=== PATIENT | female | born 1990 | race Hispanic/Latino ===

== ENCOUNTER 2017-01-23 01:43 | Emergency (ER) | payer OTHER ==
[~2017-01-23] VITALS: Ht 165.1 cm; Wt 132.0 kg
[~2017-01-23 01:43] MED LIST: AMBIEN10 MG OR; AMOXICILLIN500 MG PO; AUGMENTIN875TAB PO; CEPHALEXIN500 MG PO; CIPROFLOXACN500 MG PO; CLARITIN10 MG PO; KEFLEX500 MG PO; KLONOPIN1 MG OR; LAMICTAL150 M1; MOTRIN800 MG PO; NAPROSYN500 MG OR; NAPROSYN500 MG PO; NO HOME MEDS; OBTREX DHA PO; PRE-NATAL PO; PRENATAL1 TA1; PYRIDIUM200 MG PO; SPRINTEC 2828 DAY PO; TRILEPTAL300 M1 OR; ULTRAM50 M1 PO; ZOFRAN ODT4 MG PO; [UNRECOGNIZED DRUG - OTHER] TOP
[2017-01-23 01:48] VITALS: BP 115/65
[2017-01-23 02:57] LABS: INFLUENZA A NONE DETECTED (NONE DETECT); INFLUENZA B NONE DETECTED (NONE DETECT)
[2017-01-23] MEDS ORDERED: CODEINE/GUAIFEN1 SOL PO (03:23)
[2017-01-23] MEDS ORDERED: AMOXICILLIN500 MG PO (03:23)
== END 2017-01-23 03:39 | disposition home or self-care (01) | DRG 203 ==
LOC: ED 01:43
PROVIDERS: Emergency Medicine
DX: J40 Bronchitis, not specified as acute or chronic (principal); H92.02 Otalgia, left ear; R05 Cough; R09.89 Other specified symptoms and signs involving the circulatory and respiratory systems; R07.89 Other chest pain; R50.9 Fever, unspecified

== ENCOUNTER 2018-07-09 08:24 | Emergency (ER) | payer OTHER ==
[~2018-07-09] VITALS: Ht 165.1 cm; Wt 146.4 kg
[~2018-07-09 08:24] MED LIST changes: +CODEINE/GUAIFEN1 SOL PO
[2018-07-09] MEDS ORDERED: WELLBUTRIN SR150 MG PO (08:56)
[2018-07-09] MEDS ORDERED: FLOVENT HF110 MCG/AC (08:56)
[2018-07-09 09:32] LABS: INFLUENZA A NONE DETECTED (NONE DETECT); INFLUENZA B NONE DETECTED (NONE DETECT)
[2018-07-09] MEDS ORDERED: MEDDOSEPAK PO (10:17)
[2018-07-09] MEDS ORDERED: TESSALON PER100 MG PO (10:17)
[2018-07-09] MEDS ORDERED: ZITHROMAX250 MG PO (10:17)
[2018-07-09 10:30] VITALS: BP 129/80
== END 2018-07-09 10:30 | disposition home or self-care (01) ==
LOC: ED 08:24
PROVIDERS: Emergency Medicine
DX: J45.909 Unspecified asthma, uncomplicated (principal); E66.9 Obesity, unspecified; R05 Cough; R09.81 Nasal congestion

== ENCOUNTER 2018-09-28 12:08 | Emergency (ER) | payer OTHER ==
[~2018-09-28] VITALS: Ht 165.1 cm; Wt 125.0 kg
[~2018-09-28 12:08] MED LIST changes: +FLOVENT HF110 MCG/AC PO; +MEDDOSEPAK PO; +TESSALON PER100 MG PO; +WELLBUTRIN SR150 MG PO; +ZITHROMAX250 MG PO
[2018-09-28] MEDS ORDERED: METFORMIN500 M2 PO (12:34)
[2018-09-28] MEDS ORDERED: TOPAMAX50 MG PO (12:35)
[2018-09-28] MEDS ORDERED: PROVENTIL108 MCG/AC IN (13:31)
[2018-09-28] MEDS ORDERED: ZITHROMAX250 MG PO (13:31)
[2018-09-28] MEDS ORDERED: TESSALON PERLE100 MG PO (13:31)
[2018-09-28] MEDS ORDERED: CORTISPORIN OTI10 M2 AS (13:31)
[2018-09-28 13:35] VITALS: BP 129/73
== END 2018-09-28 13:35 | disposition home or self-care (01) ==
LOC: ED 12:08
DX: H66.92 Otitis media, unspecified, left ear (principal); J06.9 Acute upper respiratory infection, unspecified; J45.909 Unspecified asthma, uncomplicated; E66.9 Obesity, unspecified

== ENCOUNTER 2019-04-16 16:35 | Emergency (ER) | payer OTHER ==
[~2019-04-16] VITALS: Ht 165.1 cm; Wt 154.1 kg
[~2019-04-16 16:35] MED LIST changes: +CORTISPORIN OTI10 M2 AS; +METFORMIN500 M2 PO; +PROVENTIL108 MCG/AC IN; +TESSALON PERLE100 MG PO; +TOPAMAX50 MG PO
[2019-04-16 18:32] VITALS: BP 134/75
== END 2019-04-16 18:37 | disposition home or self-care (01) ==
LOC: ED 16:35
DX: O46.91 Antepartum hemorrhage, unspecified, first trimester (principal)

== ENCOUNTER 2019-05-31 10:19 | Emergency (ER) | payer OTHER ==
[~2019-05-31] VITALS: Ht 165.1 cm; Wt 140.0 kg
[2019-05-31] MEDS ORDERED: KEFLEX500 M1 PO (11:59)
[2019-05-31 12:10] VITALS: BP 155/87
[2019-06-01] MEDS ORDERED: VENTOLIN HFA IN (22:00)
== END 2019-05-31 12:10 | disposition home or self-care (01) ==
LOC: ED 10:19
DX: J02.0 Streptococcal pharyngitis (principal); J45.909 Unspecified asthma, uncomplicated

== ENCOUNTER 2019-06-01 20:16 | Emergency (ER) | payer OTHER ==
[~2019-06-01] VITALS: Ht 165.1 cm; Wt 160.0 kg
[~2019-06-01 20:16] MED LIST changes: +KEFLEX500 M1 PO
--- NOTE | 2019-06-01 21:06 | NUR ---
BREATHING TREATMENT GIVEN. BREATHING TECH. FOR GOOD DEPOSITION TO THE LUNGS.
[2019-06-01 21:14] LABS: HEMOGLOBIN 11.6 g/dl (12.0-16.0); IMMATURE GRANULOCYTES 0.6 % (0.0-5.0); MEAN CORPUSCULAR HGB 23.8 pG CALC (26.0-32.0); MEAN CORPUSCULAR HGB CONC 30.5 g/L CALC (32.0-36.0); NEUT# 10.55 thou/uL (2.00-7.15); RED BLOOD COUNT 4.87 mill/uL (4.20-5.60); RED CELL DISTRI WIDTH 14.4 % (11.5-15.5)
[2019-06-01 21:30] LABS: ALBUMIN 4.3 g/dL (3.2-5.0); ALKALINE PHOSPHATASE 105 u/l (38-126); ANION GAP 16 (6-22 (CALC)); BILIRUBIN, TOTAL 0.5 mg/dL (0.0-1.4); BUN 15 mg/dL (7-17); BUN/CREATININE RATIO 21 (12-20 (CALC)); CARBON DIOXIDE 24 mmol/l (22-30); CHLORIDE 104 mmol/l (95-108); CREATININE 0.7 mg/dL (0.5-1.0); GFR > 60 ML/MIN (>=60 (CALC)); GFR FOR AFR.AMER. > 60 ML/MIN (>=60 (CALC)); SGOT/AST 22 u/l (14-36); SODIUM 141 mmol/l (137-146); TOTAL PROTEIN 8.2 g/dL (6.3-8.2)
[2019-06-01 21:31] LABS: POTASSIUM 3.4 mmol/l (3.5-5.1)
[2019-06-01] MEDS ORDERED: VENTOLIN HFA IN (22:00)
[2019-06-01 22:28] VITALS: BP 126/75
== END 2019-06-01 22:28 | disposition home or self-care (01) ==
LOC: ED 20:16
PROVIDERS: Family Medicine
DX: J20.9 Acute bronchitis, unspecified (principal); R04.2 Hemoptysis

== ENCOUNTER 2019-08-06 08:50 | Emergency (ER) | payer OTHER ==
[~2019-08-06] VITALS: Ht 160 cm; Wt 122.7 kg
[~2019-08-06 08:50] MED LIST changes: +VENTOLIN HFA IN
[2019-08-06 09:28] LABS: HEMATOCRIT 39.1 % (37.0-47.0); HEMOGLOBIN 11.6 g/dl (12.0-16.0); IMMATURE GRANULOCYTES 0.4 % (0.0-5.0); MEAN CELL VOLUME 79.8 fL CALC (80.0-100.0); MEAN CORPUSCULAR HGB 23.7 pG CALC (26.0-32.0); MEAN CORPUSCULAR HGB CONC 29.7 g/L CALC (32.0-36.0); NEUT# 10.03 thou/uL (2.00-7.15); RED BLOOD COUNT 4.9 mill/uL (4.20-5.60); RED CELL DISTRI WIDTH 14.6 % (11.5-15.5)
[2019-08-06 09:29] LABS: URINE BILIRUBIN - DIPSTICK NEGATIVE (NEGATIVE); URINE BLOOD DIPSTICK NEGATIVE (NEGATIVE); URINE COLOR YELLOW; URINE GLUCOSE - DIPSTICK NEGATIVE (NEGATIVE); URINE KETONE NEGATIVE (NEGATIVE); URINE LEUK ESTERASE NEGATIVE (NEGATIVE); URINE NITRITE - DIPSTICK NEGATIVE (Negative); URINE PROTEIN - DIPSTICK NEGATIVE (NEG-TRACE); URINE UROBILINOGEN - DIPSTICK 0.2 E.U./dL (0.2)
[2019-08-06] MEDS ORDERED: VITAMIN D ×2 (09:36→09:38)
[2019-08-06] MEDS ORDERED: FERRAPLUS 90 PO (09:37)
[2019-08-06 09:57] LABS: ALBUMIN 3.8 g/dL (3.2-5.0); ALKALINE PHOSPHATASE 97 u/l (38-126); ANION GAP 14 (6-22 (CALC)); BILIRUBIN, TOTAL 0.7 mg/dL (0.0-1.4); BUN 13 mg/dL (7-17); BUN/CREATININE RATIO 22 (12-20 (CALC)); CARBON DIOXIDE 27 mmol/l (22-30); CHLORIDE 102 mmol/l (95-108); CREATININE 0.6 mg/dL (0.5-1.0); GFR > 60 ML/MIN (>=60 (CALC)); GFR FOR AFR.AMER. > 60 ML/MIN (>=60 (CALC)); POTASSIUM 4.6 mmol/l (3.5-5.1); SGOT/AST 21 u/l (14-36); SODIUM 139 mmol/l (137-146); TOTAL PROTEIN 7.6 g/dL (6.3-8.2)
[2019-08-06] MEDS ORDERED: FLONASE AL50 MCG/ACT (10:30)
[2019-08-06] MEDS ORDERED: CLARITIN10 M1 PO (10:30)
[2019-08-06] MEDS ORDERED: CEPHALEXIN500 MG PO (10:30)
[2019-08-06 10:45] VITALS: BP 108/57
== END 2019-08-06 10:45 | disposition home or self-care (01) ==
LOC: ED 08:50
PROVIDERS: Emergency Medicine
DX: J32.9 Chronic sinusitis, unspecified (principal)

== ENCOUNTER 2019-11-30 | Emergency (ER) | payer MEDICAID ==
[~2019-11-30] MED LIST changes: +CLARITIN10 M1 PO; +FERRAPLUS 90 PO; +FLONASE AL50 MCG/ACT; +VITAMIN D
[2019-11-30 15:33] LABS: ALBUMIN 4.3 g/dL (3.2-5.0); ALKALINE PHOSPHATASE 116 u/l (38-126); ANION GAP 14 (6-22 (CALC)); BILIRUBIN, TOTAL 1.1 mg/dL (0.0-1.4); BUN 10 mg/dL (7-17); BUN/CREATININE RATIO 19 (12-20 (CALC)); CARBON DIOXIDE 25 mmol/l (22-30); CHLORIDE 102 mmol/l (95-108); CREATININE 0.5 mg/dL (0.5-1.0); GFR > 60 ML/MIN (>=60 (CALC)); GFR FOR AFR.AMER. > 60 ML/MIN (>=60 (CALC)); POTASSIUM 4.4 mmol/l (3.5-5.1); SGOT/AST 23 u/l (14-36); SODIUM 138 mmol/l (137-146); TOTAL PROTEIN 8.4 g/dL (6.3-8.2)
[2019-11-30 15:41] LABS: HEMATOCRIT 38.2 % (37.0-47.0); HEMOGLOBIN 11.6 g/dl (12.0-16.0); IMMATURE GRANULOCYTES 0.5 % (0.0-5.0); MEAN CORPUSCULAR HGB 23.7 pG CALC (26.0-32.0); MEAN CORPUSCULAR HGB CONC 30.4 g/dL CAL (32.0-36.0); NEUT# 18.88 thou/uL (2.00-7.15); RED BLOOD COUNT 4.9 mill/uL (4.20-5.60); RED CELL DISTRI WIDTH 14.6 % (11.5-15.5)
[2019-11-30 16:23] LABS: C-REACTIVE PROTEIN 3.5 mg/dL (0-0.9)
[2019-11-30 16:41] LABS: URINE BILIRUBIN - DIPSTICK NEGATIVE (NEGATIVE); URINE BLOOD DIPSTICK NEGATIVE (NEGATIVE); URINE COLOR YELLOW; URINE GLUCOSE - DIPSTICK NEGATIVE (NEGATIVE); URINE KETONE NEGATIVE (NEGATIVE); URINE LEUK ESTERASE NEGATIVE (NEGATIVE); URINE NITRITE - DIPSTICK NEGATIVE (Negative); URINE PROTEIN - DIPSTICK NEGATIVE (NEG-TRACE); URINE UROBILINOGEN - DIPSTICK 0.2 E.U./dL (0.2)
[2019-11-30] MEDS ORDERED: ZPAK PO (16:55)
== END 2019-11-30 16:58 | disposition home or self-care (01) ==
PROVIDERS: Family Medicine
DX: J06.9 Acute upper respiratory infection, unspecified (principal); Z20.828 Contact with and (suspected) exposure to other viral communicable diseases

== ENCOUNTER 2019-12-05 20:23 | Inpatient (IN) | payer MEDICAID ==
[~2019-12-05] VITALS: Ht 162.6 cm; Wt 151.0 kg
[~2019-12-05 20:23] MED LIST changes: +ZPAK PO
--- NOTE | 2019-12-05 20:40 | NUR ---
Pt ambulated to room # 3 with steady gait for bedside triage
--- NOTE | 2019-12-05 20:41 | NUR ---
PT. TO ROOM 15 WITH C/O TAKING A Z-PACK FOR SORE THROAT AND STATING SHE IS FEELING WORSE. PT. TEMP. 101.4. BEING SEEN HERE ON SUNDAY AND HAVING A NEGATIVE FLU AND STREP.
[2019-12-05] MEDS ORDERED: FLOVENT DI250 MCG/BL (20:57)
[2019-12-05] MEDS ORDERED: ALBUTEROL SUL0.083 % IN (20:57)
[2019-12-05 21:48] LABS: HEMATOCRIT 41.2 % (37.0-47.0); HEMOGLOBIN 12.7 g/dl (12.0-16.0); IMMATURE GRANULOCYTES 0.5 % (0.0-5.0); MEAN CELL VOLUME 77.2 fL CALC (80.0-100.0); MEAN CORPUSCULAR HGB 23.8 pG CALC (26.0-32.0); MEAN CORPUSCULAR HGB CONC 30.8 g/dL CAL (32.0-36.0); NEUT# 14.01 thou/uL (2.00-7.15); RED BLOOD COUNT 5.34 mill/uL (4.20-5.60); RED CELL DISTRI WIDTH 14.2 % (11.5-15.5)
[2019-12-05 22:06] LABS: ALBUMIN 4.5 g/dL (3.2-5.0); ALKALINE PHOSPHATASE 133 u/l (38-126); ANION GAP 14 (6-22 (CALC)); BILIRUBIN, TOTAL 0.8 mg/dL (0.0-1.4); BUN 10 mg/dL (7-17); BUN/CREATININE RATIO 17 (12-20 (CALC)); C-REACTIVE PROTEIN 5.9 mg/dL (0-0.9); CARBON DIOXIDE 26 mmol/l (22-30); CHLORIDE 99 mmol/l (95-108); CREATININE 0.6 mg/dL (0.5-1.0); GFR > 60 ML/MIN (>=60 (CALC)); GFR FOR AFR.AMER. > 60 ML/MIN (>=60 (CALC)); POTASSIUM 4.4 mmol/l (3.5-5.1); SGOT/AST 32 u/l (14-36); SODIUM 135 mmol/l (137-146); TOTAL PROTEIN 9.3 g/dL (6.3-8.2)
--- NOTE | 2019-12-05 22:07 | NUR ---
IVF, IV SOLU-MEDROL IV ABT. AND PO TYLENOL GIVEN PER MD ORDER.
--- NOTE | 2019-12-05 23:56 | NUR ---
IN ROOM TO DISCUSS CLINICAL FINDINGS WITH PT. VERBALIZED UNDERSTANDING.
[2019-12-06] VITALS (7 sets, daily range): BP systolic 119–161; BP diastolic 64–78
--- NOTE | 2019-12-06 01:00 | NUR ---
MD MADE PT. AWARE OF ADMISSION, VERBALIZED UNDERSTANDING.
--- NOTE | 2019-12-06 01:20 | NUR ---
Admission Note Report Given to: NGOZI WILLS Transported by: Wheelchair X Stretcher Transported with: X Nurse Transporter X Patent IV O2 X Pilot Steam Yacht Location: ICU X MS2
--- NOTE | 2019-12-06 01:31 | NUR ---
PT. TAKEN TO [place] FLOOR VIA STRETCHER, NO C/O.
--- NOTE | 2019-12-06 01:45 | NUR ---
PT ARRIVED TO UNIT @ 0142 VIA STRETCHER, ACCOMPANIED BY Sourav LEMA RN. PT AMBULATORY TO THE ROOM W/ BALANCED, STEADY GATE. ADMISSION AND PHYSICAL ASSESMENT COMPLETED. CARE PLAN INITIATED. PLAN OF CARE REVIEWED W/ PT. PT VERBALIZES UNDERSTANDING AND DENIES QUESTIONS, PT DENIES NEEDS AT THIS TIME. CALL RAUSCH WITHIN REACH. AGREES TO CALL PRN. ITEMS WITHIN REACH. BED LOCKED IN LOW POSITION W/ BEDRAILS UP X2.
--- NOTE | 2019-12-06 03:15 | NUR ---
PT NPO FOR ABD U/S TODAY
--- NOTE | 2019-12-06 04:32 | NUR ---
PT APPEARS TO BE SLEEPING COMFORTABLY. NO APPARENT DISTRESS. RESPIRATIONS REGULAR AND UNLABORED. CALL RAUSCH REMAINS WITHIN REACH, FALL AND SAFETY INTERVENTIONS REMAIN IN PLACE.
--- NOTE | 2019-12-06 08:00 | NUR ---
REPORT RECEIVED FROM JOHANN MELVIN. PT SITTING UP IN BED EATING CLEAR LIQUID BREAKFAST; ALERT AND ORIENTED. C/O 4/10 PAIN IN HER THROAT THAT IS MAKING IT DIFFICULT FOR HER TO SWALLOW. RESPIRATIONS EVEN AND UNLABORED ON ROOM AIR. IV FLUIDS INFUSING; IV SITE APPEARS HEALTHY. PLAN OF CARE REVIEWED. PT ENCOURAGED TO VERBALIZE CONCERNS. STATES UNDERSTANDING. SAFETY MEASURES IN PLACE. CALL LIGHT WITHIN REACH.
--- NOTE | 2019-12-06 08:25 | NUR ---
MOTRIN GIVEN FOR 4/10 SORE THROAT.
--- NOTE | 2019-12-06 09:14 | NUR ---
VANCO INFUSING. PT REQUESTED TO NOT BE DISTURBED UNTIL LUNCH SO SHE CAN GET SOME SLEEP. REPORTS THAT MOTRIN WAS EFFECTIVE.
--- NOTE | 2019-12-06 12:32 | NUR ---
PT SITTING UP FOR LUNCH WITH NO SIGNS OF DISTRESS. RESPIRATIONS EVEN AND UNLABORED ON ROOM AIR. NO REQUESTS OR CONCERNS AT THIS TIME. CALL LIGHT WITHIN REACH.
--- NOTE | 2019-12-06 14:59 | NUR ---
S: BECKY TRIPLETT is a 29 F who presents with TONSILLITIS. She has a history of CONGESTION AND SORE THROAT FOR 2 WEEKS. All medications in patient's chart were reviewed. O: VS: BP 124/77, P 69, RR 18,T 96.3 W 151kg>, HT 64IN, Scr=,CrCl= 0.6 ml/min A: Blood culture <is pending Urine culture <is pending P: Patient is on ZOSYN 3.375 Q6H AND VANCOMYCIN PHARMACY TO DOSE. Vancomycin ordered for pharmacy to dose. Start Vancomycin 1250MG IV Q8H. Vancomycin trough is drawn before the 4th dose on 12/07/19 @0830. Vancomycin goal trough is between <10-15 mcg/ml>. Pharmacy will follow and or advise on antibiotics use as needed.
--- NOTE | 2019-12-06 16:45 | NUR ---
INDEPENDENT IN ROOM; AMBULATING TO BATHROOM. VANCO INFUSING; IV SITE APPEARS HEALTHY. NO REQUESTS OR CONCERNS AT THIS TIME. CALL LIGHT WITHIN REACH.
--- NOTE | 2019-12-06 19:00 | NUR ---
REPORT RECEIVED FROM Oli PLUMMER RN, CARE OF PT ASSUMED @ THIS TIME. PT RESTING IN BED, NO APPARENT DISTRESS OR DISCOMFORT. DENIES NEEDS @ THIS TIME. CALL RAUSCH WITHIN REACH, AGREES TO CALL PRN.
--- NOTE | 2019-12-06 20:45 | NUR ---
PHYSICAL ASSESMENT COMPLETED. VS TAKEN BY EPIFANIO @ 1909 ASSESSED. PLAN OF CARE REVIEWED, PT VERBALIZES UNDERSTANDING, DENIES QUESTIONS @ THIS TIME. SEE MAR FOR MED ADMINASTRATION. PT DENIES NEEDS @ THIS TIME, CALL RAUSCH WITHIN REACH, AGREES TO CALL PRN. BED LOCKED IN LOW POSITION W/ BEDRAILS UP X2. ITEMS WITHIN REACH.
--- NOTE | 2019-12-06 23:00 | NUR ---
PER Alannah RODRIGUEZ PT IS SUSTAINING 130'S-140'S ST ON TELE. PT ASSESSED. NO APARENT DISTRESS, RESP REG AND UNLABORED. PT WAS FOUND LAYING IN BED USING CELL PHONE W/ HEADPHONES IN. DENIES PAIN/ DISCOMFORT. REPORTS "FEELING WARM" TEMP 97.5 TEMPORALY. RADIAL PULSE IS 85bpm UPON PALPATION, STRONG, REGULAR PULSE. F/U W/ Alannah RODRIGUEZ WHEN RETURNED TO NURSES STATION, REPORTS PT IS NOW SR 87. WILL CON'T TO [id number].
--- NOTE | 2019-12-07 01:24 | NUR ---
VS TAKEN BY TIP BANDER @ 0958 ASSESSED. PT APPEARS TO BE SLEEPING COMFORTABLY, NO APPARENT DISTRESS, RESP REGUALR AND UNLABORED. CALL RAUSCH REMAINS WITHIN REACH, BED REMAINS LOCKED IN LOW POSITION W/ BEDRAILS UP X2.ITEMS REMAIN WITHIN REACH.
[2019-12-07 04:45] VITALS: BP 135/76
[2019-12-07 05:06] LABS: HEMATOCRIT 37.2 % (37.0-47.0); HEMOGLOBIN 11.2 g/dl (12.0-16.0); IMMATURE GRANULOCYTES 0.6 % (0.0-5.0); MEAN CELL VOLUME 79.3 fL CALC (80.0-100.0); MEAN CORPUSCULAR HGB 23.9 pG CALC (26.0-32.0); MEAN CORPUSCULAR HGB CONC 30.1 g/dL CAL (32.0-36.0); NEUT# 11.31 thou/uL (2.00-7.15); RED BLOOD COUNT 4.69 mill/uL (4.20-5.60); RED CELL DISTRI WIDTH 14.5 % (11.5-15.5)
[2019-12-07 05:12] LABS: ALKALINE PHOSPHATASE 88 u/l (38-126); ANION GAP 9 (6-22 (CALC)); BUN 11 mg/dL (7-17); BUN/CREATININE RATIO 23 (12-20 (CALC)); CARBON DIOXIDE 28 mmol/l (22-30); CHLORIDE 106 mmol/l (95-108); CREATININE 0.5 mg/dL (0.5-1.0); GFR > 60 ML/MIN (>=60 (CALC)); GFR FOR AFR.AMER. > 60 ML/MIN (>=60 (CALC)); POTASSIUM 4.2 mmol/l (3.5-5.1); SGOT/AST 20 u/l (14-36); SODIUM 139 mmol/l (137-146)
[2019-12-07 05:19] LABS: ALBUMIN 3.5 g/dL (3.2-5.0); BILIRUBIN, TOTAL 0.4 mg/dL (0.0-1.4); TOTAL PROTEIN 7.1 g/dL (6.3-8.2)
--- NOTE | 2019-12-07 05:41 | NUR ---
PT REPORTS NO RELEIF FROM PAIN. PT EXPRESSES FRUSTRATIONS W/ CARE. STATES "YOU KEEP ASKING ME IF IM OK BUT IM NOT GETTING BETTER", PT IS TEARY AND VISIBLY UPSET. ENCOURAGED PT TO REPORT PAIN ACCURATELY. PT REPORTS SHE FEELS SHE NEEDS AN ENT SPECIALIST AND WOULD LIKE TO BE TRANSFERRED TO A DIFFERENT, LARGER HOSPITAL. EXPLAINED TO PT SHE HAS BEEN AFEBRILE AND WBC DECREASED SO SHE IS SHOWING IMPROVEMENT. ENCOURAGED PT TO DISCUSS HER CONCERNS WITH HER PROVIDER THIS AM. ASKED PT IF SHE WOULD WAIT UNTIL SHE WAS ABLE TO SPEAK W/ HER PROVIDER TODAY. PT AGREES. SPOKE W/ DR. BETANCOURT REGARDING PTS CONCERNS AND UNRELEIVED PAIN. ORDER FOR TORADOL 15MG IVX1 RECEIVED, SEE NOV.
[2019-12-07 09:04] VITALS: BP 140/82
--- NOTE | 2019-12-07 09:04 | NUR ---
PT SLEEPING IN BED. AWAKENED TO COMPLETE ASSESSMENT. A&O X3. NO DISTRESS NOTED. PER PT SHE IS FEELING OKAY AND HER THROAT IS NOT CURRENTLY BOTHERING HER. NO OTHER NEEDS AT THIS TIME. ASSESSMENT COMPLETED. DISCUSSED POC. CALL LIGHT IN REACH. CONTINUE TO MONITOR.
--- NOTE | 2019-12-07 10:20 | NUR ---
S: BECKY TRIPLETT is a 29 F who presents with TONSILLITIS. She has a history of SORE THROAT . All medications in patient's chart were reviewed. Blood culture <is pending Urine culture <is pending P: Patient is on ZOSYN 3.375 Q6H. Vancomycin ordered for pharmacy to dose. PATIENTS TROUGH IS 10 ON 12/06/18. PATIENT IS OBESE WE WILL RECHECK TROUGH I N 24 HOURS BEFORE CHANGING DOSE. CONTINUE Vancomycin 1250MG IV Q8H. Vancomycin trough is drawn before the 4th dose on 12/08/19 0830. Vancomycin goal trough is between 15-20 mcg/ml. Pharmacy will follow and or advise on antibiotics use as needed.
[2019-12-07 10:47] VITALS: BP 138/77
--- NOTE | 2019-12-07 13:04 | NUR ---
PT C/O OF A SORE THROAT. TEMP CHECKED 100.2 EXPLAINED TO PT THAT BLANKETS WILL BE REMOVED AND ROOM MADE COLDER. EXPLAINED REASONING BEHIND INTERVENTIONS. PT VERBALIZED UNDERSTANDING.
--- NOTE | 2019-12-07 13:16 | NUR ---
PER CAMDEN IN ED, HR 160 AND CLINICAL SUPPORT CALLED ON PT. CHECKED ON PT PT AMBULATING FROM THE RESTROOM BACK TO BED. PER PT SHE IS OKAY BUT FEELS SOME WEAKNESS. SET OF VITALS OBTAINED. BP: 164/93, TEMP 100.1 HR 121. ACE AND NOTIFIED.
--- NOTE | 2019-12-07 13:20 | NUR ---
EKG OBTAINED AND REVIEWED BY DR. BETANCOURT
[2019-12-07 13:21] VITALS: BP 164/93
--- NOTE | 2019-12-07 13:25 | NUR ---
TYLENOL GIVEN FOR TEMP. WILL REASSESS.
--- NOTE | 2019-12-07 14:20 | NUR ---
TEMP 99.8 PT REPORTS TO BE FEELING BETTER. CONTINUE TO MONITOR
[2019-12-07 19:16] VITALS: BP 129/64
--- NOTE | 2019-12-07 19:40 | NUR ---
ASSESSMENT COMPLETED. NO DISTRESS NOTED;DENIES NEEDS/PAIN. UPDATED ON POC. ENCOURAGED TO CALL FOR ANY NEEDS. IV SITE PATENT AND INFUSING ORDERED IVF WELL. CALL LIGHT IS IN REACH.
--- NOTE | 2019-12-07 22:04 | NUR ---
TEMP 100.4 AND REPORTS SORE THROAT, MEDICATED WITH ORDERED PRN TYLENOL AND LOZENGE, WILL REASSESS.
[2019-12-07 23:26] VITALS: BP 145/87
--- NOTE | 2019-12-07 23:26 | NUR ---
PT. RESTING IN BED ASLEEP AND AWAKENED FOR VS; VSS; DENIES NEEDS. CALL LIGHT IS IN REACH.
--- NOTE | 2019-12-08 01:05 | NUR ---
SENIOR LIVING ADVISOR CALLED AND REPOTED HR UP TO 160. PT. JUST HAD GOTTEN BACK FROM THE BATHROOM AND NOW HR DOWN TO BASELINE 120. NO DISTRESS NOTED. TEMP CHECKED AND IS 99.1. WILL CONTINUE TO MONITOR.
[2019-12-08 04:50] VITALS: BP 147/98
--- NOTE | 2019-12-08 05:09 | NUR ---
PT. WITH TEMP OF 100.2 AND MEDICATED WITH ORDERED PRN TYLENOL, WILL REASSESS. ALSO PROVIDED WITH LOZENGE FOR SORE THROAT. DENIES FURTHER NEEDS. CALL LIGHT IS IN REACH. WILL CONTINUE TO MONITOR.
--- NOTE | 2019-12-08 07:15 | NUR ---
CHANGE OF SHIFT REPORT RECEIVED FROM HARDIK DOMÍNGUEZ.
[2019-12-08 09:11] LABS: HEMATOCRIT 35.7 % (37.0-47.0); MEAN CELL VOLUME 78.3 fL CALC (80.0-100.0); MEAN CORPUSCULAR HGB 24.1 pG CALC (26.0-32.0); MEAN CORPUSCULAR HGB CONC 30.8 g/dL CAL (32.0-36.0); RED BLOOD COUNT 4.56 mill/uL (4.20-5.60); RED CELL DISTRI WIDTH 14.5 % (11.5-15.5)
[2019-12-08 11:45] VITALS: BP 142/61
--- NOTE | 2019-12-08 12:00 | NUR ---
PT RESTING COMFORTABLY IN ROOM. EDUCATION PROVIDED ON DISEASE PROCESS. EDUCATION PROVIDED ON ANTIBIOTICS AND CARE OF IV SITE. BED IN LOWEST POSITION, CALL LIGHT WITHIN EASY REACH
--- NOTE | 2019-12-08 13:06 | NUR ---
CALLED DR RICHARDSON AT [phone]. SPOKE TO DOCTOR ABOUT THIS PT. GAVE INFORMATION ON THIS PT. STATED OK AND THANKS FOR THE CONSULTATION.
--- NOTE | 2019-12-08 14:45 | NUR ---
S: BECKY TRIPLETT is a 29 F who presents with tonsilitis/sepsis. All medications in patient's chart were reviewed. O: W 151 kg, HT 64 in, Scr 0.5 mg/dl, CrCl > 100 ml/min A: Blood culture is pending P: Vancomycin trough today 12/07 was 10 mcg/ml. Increase Vancomycin to 1500mg IV Q8H @ 0100, 0900, and 1700. Vancomycin trough is drawn before the 4th dose on 12/09/19 @ 1630. Vancomycin goal trough is between 15-20 mcg/ml. Pharmacy will follow and or advise on antibiotics use as needed.
[2019-12-08 15:40] VITALS: BP 110/57
[2019-12-08 15:45] VITALS: BP 178/78
--- NOTE | 2019-12-08 16:00 | NUR ---
PT REMAINS AFEBRILE. PT CONTINUES ON VANCO AND ZOSYN FOR TONSILLITIES. JOB TRAINER WILL CONTINUE TO MONITOR
[2019-12-08 18:55] VITALS: BP 145/82
--- NOTE | 2019-12-08 19:55 | NUR ---
ASSESSMENT COMPLETED. IV SITE REMOVED FROM RAC WITH CATHETER TIP INTACT. NEW IV STARTED TO LEFT HAND X2 ATTEMPT AND TOLERATED WELL. UPDATED ON POC. VOICES NO CONCERNS. CALL LIGHT IS IN REACH.
--- NOTE | 2019-12-08 21:06 | NUR ---
PT. C/O SORE THROAT AND MEDICATED WITH ORDERED PRN MOTRIN AND LOZENGE; WILL REASSESS. FRESH WATER PROVIDED. CALL LIGHT IS IN REACH.
[2019-12-09] VITALS (7 sets, daily range): BP systolic 119–161; BP diastolic 52–92
--- NOTE | 2019-12-09 00:45 | NUR ---
PT. SITTING UP ON BEDSIDE WITH NO DISTRESS NOTED; REPORTS FEELING BETTER TONIGHT AND THAT SHE HAD A BM. ADRIANA BOX. CALL LIGHT IS IN REACH. ENCOURAGED TO CALL FOR ANY NEEDS.
--- NOTE | 2019-12-09 01:31 | NUR ---
COMMODE EMPTIED. C/O SORE THROAT AND LOZENGE PROVIDED ALONG WITH FRESH WATER; DENIES NEEDS.CALL LIGHT IS IN REACH.
--- NOTE | 2019-12-09 04:00 | NUR ---
AM LABS DRAWN PER ORDER. PT. DENIES NEEDS. CALL LIGHT IS IN REACH.
[2019-12-09 05:05] LABS: MEAN CELL VOLUME 78.6 fL CALC (80.0-100.0); MEAN CORPUSCULAR HGB 23.6 pG CALC (26.0-32.0); RED BLOOD COUNT 5.09 mill/uL (4.20-5.60); RED CELL DISTRI WIDTH 14.3 % (11.5-15.5)
[2019-12-09 05:16] LABS: ALBUMIN 3.7 g/dL (3.2-5.0); ALKALINE PHOSPHATASE 91 u/l (38-126); ANION GAP 14 (6-22 (CALC)); BUN 6 mg/dL (7-17); BUN/CREATININE RATIO 11 (12-20 (CALC)); CARBON DIOXIDE 26 mmol/l (22-30); CHLORIDE 103 mmol/l (95-108); CREATININE 0.6 mg/dL (0.5-1.0); GFR > 60 ML/MIN (>=60 (CALC)); GFR FOR AFR.AMER. > 60 ML/MIN (>=60 (CALC)); POTASSIUM 3.9 mmol/l (3.5-5.1); SODIUM 140 mmol/l (137-146); TOTAL PROTEIN 7.5 g/dL (6.3-8.2)
[2019-12-09 05:21] LABS: BILIRUBIN, TOTAL 0.7 mg/dL (0.0-1.4); SGOT/AST 38 u/l (14-36)
--- NOTE | 2019-12-09 06:05 | NUR ---
PT. RESTING IN BED C/O SORE THROAT 03/12 AND MEDICATED WITH ORDERED MOTRIN, WILL REASSESS. PT. REPORTS SHE HAD X2 LOOSE STOOLS THIS AM; UNOBSERVED BY STAFF. PT. IS INSTRUCTED TO CALL NEXT TIME SHE HAS A LOOSE STOOL FOR STAFF TO INSPECT; VERBALIZES UNDERSTANDING.
--- NOTE | 2019-12-09 07:40 | NUR ---
ASSESSMENT IS COMPLTED: IV SITE IS FREE FROM REDNESS OR EDEMA. HR IS REG,PULSES ARE STRONG X4, ABD IS SOFT WITH ACTIVE BS, BREATH SOUNDS ARE CLEAR,BILATERALLY. TELE MONITOR IN PLACE. CONTINUE TO OSBERVE AND MONITOR.
--- NOTE | 2019-12-09 10:19 | NUR ---
MOTHER INQUIRED ABOUT RESULTS FROM COVID WAS INFORMED MAY GET RESULTS TODAY EXPLAINED THAT IT CAN TAKE 24 TO 48 HOURS BEFORE WE HEAR ANYTHING.
--- NOTE | 2019-12-09 10:39 | NUR ---
FAMILY SENT SHAMPOO AND CONDITIONER. PT IS ASLEEP
--- NOTE | 2019-12-09 12:15 | NUR ---
PT IS SITTING ON THE SIDE OF THE BED WITH NO DISTRESS NOTED. IV SITE IS FREE FROM REDNESS OR EDEMA.
--- NOTE | 2019-12-09 16:15 | NUR ---
PT IS RELAXING IN BED LAB DRAWN FOR VANCO . RESULTED IN 13 CONTINUE TO OBSERVE AND MONITOR
--- NOTE | 2019-12-09 16:33 | NUR ---
ATEMPTED TO DRAW BLOOD FOR TROUGH TOOK 4 STICKS.
--- NOTE | 2019-12-09 19:00 | NUR ---
RECEIVED REPORT FROM DAY SHIFT NURSE PATIENT RESTING IN BED WATCHING TV, EVEN UNLABORED BREATHING CALL LIGHT AT REACH.
--- NOTE | 2019-12-09 21:30 | NUR ---
PATIENT ALERT ORIENETED ABLE TO MAKE NEEDS KNONW, WITH ONGOING IV OF NS @ 75CC/HR INFUSING WELL ON LEFT HAND REMAINS ON TELE ST 108, C/O THROAT PAIN WILL MEDICATE, ICE CHIPS PROVIDED, NON PRODUCTIVE COUGH, CALL LIGHT AT REACH.
--- NOTE | 2019-12-10 01:49 | NUR ---
RECEIVED A PHONE JENNIFER FROM ED PATIENT HR 120-130, HECK PATIENT IS AMBULATING TO THE BATHROOM, IS ASYMPTOMATIC, DENIES PAIN O DISCOMFORT AT THIS TIME.
--- NOTE | 2019-12-10 04:08 | NUR ---
PATIENT APPEARS TO BE SLEEPING WITH EYES CLOSED, OCCASIONAL COUGHING NOTED, RESPIRATION EVEN AND UNLABORED, CALL LIGHT AT REACH.
[2019-12-10 04:15] VITALS: BP 156/94
[2019-12-10 07:30] VITALS: BP 147/77
--- NOTE | 2019-12-10 07:32 | NUR ---
PT REMOVED FROM ISOLATION PRECAUTIONS AFTER NEGATIVE COVID TEST RESULTS. NOW ON STANDARD PRECAUTIONS.
--- NOTE | 2019-12-10 07:35 | NUR ---
PT AWAKE AND RESTING IN BED; ALERT AND ORIENTED. C/O SORE THROAT; THROAT IS REDENNED WITH WHITE PATCHES. RESPIRATIONS EVEN AND UNLABORED ON ROOM AIR. PT ALSO C/O MILD NAUSEA. STATES THAT SHE HAD NAUSEA AND EMESIS LAST NIGHT. BP 147/77 HR 108; AFEBRIL. IV FLUIDS INFUSING WITHOUT DIFFICULTY; IV SITE TO LH APPEARS HEALTHY. PLAN OF CARE REVIEWED. PT ENCOURAGED TO VERBALIZE CONCERNS. STATES UNDERSTANDING. SAFETY MEASURES IN PLACE. CALL LIGHT WITHIN REACH.
--- NOTE | 2019-12-10 07:48 | NUR ---
PT UP TO BATHROOM; VOMITING MODERATE AMOUNTS. ZOFRAN ORDERED.
--- NOTE | 2019-12-10 11:00 | NUR ---
DR. LONDONO AND DOMENIC EATON AT BEDSIDE. NEW ORDER FOR MAGIC MOUTH WASH PRN FOR SORE THROAT. LABS OBTAINED AND SENT TO LAB.
[2019-12-10 11:09] VITALS: BP 161/97
[2019-12-10 12:28] LABS: HEMATOCRIT 35.6 % (37.0-47.0); HEMOGLOBIN 10.7 g/dl (12.0-16.0); IMMATURE GRANULOCYTES 0.5 % (0.0-5.0); MEAN CELL VOLUME 77.4 fL CALC (80.0-100.0); MEAN CORPUSCULAR HGB 23.3 pG CALC (26.0-32.0); MEAN CORPUSCULAR HGB CONC 30.1 g/dL CAL (32.0-36.0); NEUT# 8.75 thou/uL (2.00-7.15); RED BLOOD COUNT 4.6 mill/uL (4.20-5.60); RED CELL DISTRI WIDTH 14.1 % (11.5-15.5)
[2019-12-10 12:48] LABS: ALBUMIN 3.4 g/dL (3.2-5.0); ALKALINE PHOSPHATASE 107 u/l (38-126); ANION GAP 12 (6-22 (CALC)); BILIRUBIN, TOTAL 0.6 mg/dL (0.0-1.4); BUN 4 mg/dL (7-17); BUN/CREATININE RATIO 6 (12-20 (CALC)); CARBON DIOXIDE 27 mmol/l (22-30); CHLORIDE 103 mmol/l (95-108); CREATININE 0.7 mg/dL (0.5-1.0); GFR > 60 ML/MIN (>=60 (CALC)); GFR FOR AFR.AMER. > 60 ML/MIN (>=60 (CALC)); POTASSIUM 3.9 mmol/l (3.5-5.1); SODIUM 138 mmol/l (137-146); TOTAL PROTEIN 7.2 g/dL (6.3-8.2)
[2019-12-10 12:50] LABS: SGOT/AST 174 u/l (14-36)
--- NOTE | 2019-12-10 12:56 | NUR ---
PT TRANSPORTED TO ROOM 272 ON STANDARD PRECAUTIONS VIA BED. REQUESTING TO BE SET UP FOR SHOWER.
--- NOTE | 2019-12-10 14:27 | NUR ---
PT NOW RESTING IN BED SEMI FOWLERS AFTER SHOWER; RECONNECTED TO IV FLUIDS AND TELE REAPPLIED. PT REQUESTING GINGERALE. NO OTHER REQUESTS OR CONCERNS AT THIS TIME.
--- NOTE | 2019-12-10 15:46 | NUR ---
S: BECKY TRIPLETT is a 29 F who presents with SEPSIS. She has a history of TONSILITIS. All medications in patient's chart were reviewed. O: VS: BP 161/97, P 78, RR 18,T 97.7 W 151KG, HT 64IN, Scr=0.7 ,CrCl= >100ml/min A: Blood culture show NO GROWTH P: Patient is on ZOSYN 3.375 GRAMS Q6H. Vancomycin ordered for pharmacy to dose. TROUGH IS 13 ON 12/08 CONTINUE Vancomycin 1500MG IV Q8H. Vancomycin trough is drawn before the 4th dose on 12/11/2019. Vancomycin goal trough is between 15-20 mcg/ml. TROUGH IS CURRENTLY SLIGHTLY LOWER THAN GOAL WE WILL RECHECK IN 1 DAY. Pharmacy will follow and or advise on antibiotics use as needed. VANESSA URIOSTEGUID
--- NOTE | 2019-12-10 16:00 | NUR ---
RECEIVED PT FROM ELOISE WHO GAVE REPORT, SHE IS SETTLED IN BED, C/O THROAT DISCOMFORT, ALSO C/O NAUSEA, VOMITTING AND DIARRHEA @ 1730, DR WHEELER NOTIFIED AND GAVE ORDERS FOR ANTIEMETIC, CONCERNS ADDRESSED.
[2019-12-10 16:08] VITALS: BP 124/75
--- NOTE | 2019-12-10 19:20 | NUR ---
REPORT FROM JOSE CRUZ WILLS. PT RESTING IN BED WATCHING TV. NO APPARENT DISTRESS NOTED. OFF GOING NURSE JUST MEDICATED PRIOR FOR NAUSEA AND PAIN. PT DENIES ANY CURRENT WANTS OR NEEDS. IV SITE APPEARS HEALTHY. TRANSITION MGR IN PLACE. DISCUSSED POC. PT VERBALIZED UNDERSTANDING. CALL LIGHT WITHIN REACH. WILL CONTINUE TO MONITOR.
[2019-12-10 19:24] VITALS: BP 145/92
--- NOTE | 2019-12-10 20:12 | NUR ---
ASSESSMENT COMPLETE. PT DENIES ANY PAIN OR NAUSEA AT THIS TIME. NO APPARENT RESPIRATORY DISTRESS NOTED. DINNER TRAY REMOVED FROM ROOM. PT DID NOT EAT, INFORMED PT SNACKS AVAILABLE IF NEEDED. VERBALIZED UNDERSTANDING. CALL LIGHT WITHIN REACH. WILL CONTINUE TO MONITOR.
--- NOTE | 2019-12-11 00:15 | NUR ---
PT SITTING UP IN BED ON CELL PHONE. NO APPARENT DISTRESS NOTED. PT DENIES ANY PAIN OR NAUSEA. ICE, GINGERALE, AND POPSICLE PROVIDED UPON REQUEST. CALL LIGHT WITHIN REACH. WILL CONTINUE TO MONITOR.
[2019-12-11 00:29] VITALS: BP 138/86
--- NOTE | 2019-12-11 04:26 | NUR ---
PT RESTING IN BED. NO APPARENT DISTRESS NOTED. CALL LIGHT WITHIN REACH. WILL CONTINUE TO MONITOR.
[2019-12-11 04:58] VITALS: BP 121/75
[2019-12-11 07:44] VITALS: BP 143/92
[2019-12-11 08:34] LABS: HEMATOCRIT 34.4 % (37.0-47.0); HEMOGLOBIN 10.3 g/dl (12.0-16.0); IMMATURE GRANULOCYTES 0.5 % (0.0-5.0); MEAN CELL VOLUME 78.9 fL CALC (80.0-100.0); MEAN CORPUSCULAR HGB 23.6 pG CALC (26.0-32.0); MEAN CORPUSCULAR HGB CONC 29.9 g/dL CAL (32.0-36.0); NEUT# 9.36 thou/uL (2.00-7.15); RED BLOOD COUNT 4.36 mill/uL (4.20-5.60); RED CELL DISTRI WIDTH 14.2 % (11.5-15.5)
[2019-12-11 08:55] LABS: ALBUMIN 3.2 g/dL (3.2-5.0); BILIRUBIN, TOTAL 0.6 mg/dL (0.0-1.4); CREATININE 1.3 mg/dL (0.5-1.0); POTASSIUM 3.5 mmol/l (3.5-5.1); TOTAL PROTEIN 6.9 g/dL (6.3-8.2)
--- NOTE | 2019-12-11 09:00 | NUR ---
PT SEEN AWAKE, ALERT, ORIENTED X 3. LUNGS CLEAR, RA. PT WITH TONSILAR DISCOMFORT. ABX INFUSE ORDERED.
[2019-12-11 12:06] VITALS: BP 137/86
[2019-12-11 14:40] VITALS: BP 144/90
--- NOTE | 2019-12-11 15:05 | NUR ---
PT EXPRESSES FRUSTRATION WITH STILL BEING HERE AND NOT MUCH IMPROVEMENT IN HER STATUS. FINDINGS REVIEWED WITH PT WELL DOCTOR'S NOTE. NO DISTRESS NOTED.
--- NOTE | 2019-12-11 17:26 | NUR ---
PT AT REST IN THE BED, USES HER PHONE, NO COMPLAINTS OR EVIDENCE OF DISTRESS.
--- NOTE | 2019-12-11 19:10 | NUR ---
REPORT FROM ELENA WILLS. PT ALERT AND ORIENTED, NOTED RESTING IN BED. NO APPARENT DISTRESS, RESPIRATIONS EVEN AND UNLABORED. PT DENIES ANY PAIN, HAS MILD DISCOMFORT IN THROAT. PT STATES SHE IS DRINKING PLENTY OF WATER WHICH PROVIDES SOME RELIEF. DISCUSSED POC. PT VERBALIZED UNDERSTANDING. CALL LIGHT WITHIN REACH. WILL CONTINUE TO MONITOR.
[2019-12-11 19:50] VITALS: BP 157/89
--- NOTE | 2019-12-11 23:26 | NUR ---
PT RESTING IN BED WITH EYES CLOSED. NO APPARENT DISTRESS NOTED. CALL LIGHT WITHIN REACH. WILL CONTINUE TO MONITOR.
--- NOTE | 2019-12-12 01:06 | NUR ---
PT UP TO SHOWER. IV DISCONNECTED AND SITE COVERED. COMPLETE LINEN CHANGE PROVIDED. PT INSTRUCTED TO CALL WHEN DONE.
[2019-12-12 01:27] VITALS: BP 142/95
--- NOTE | 2019-12-12 05:12 | NUR ---
PT RESTING IN BED WITH EYES CLOSED. NO APPARENT DISTRESS NOTED. CALL LIGHT WITHIN REACH. WILL CONTINUE TO MONITOR.
[2019-12-12 05:37] LABS: HEMOGLOBIN 11.2 g/dl (12.0-16.0); IMMATURE GRANULOCYTES 0.6 % (0.0-5.0); MEAN CELL VOLUME 77.6 fL CALC (80.0-100.0); MEAN CORPUSCULAR HGB 23.5 pG CALC (26.0-32.0); MEAN CORPUSCULAR HGB CONC 30.3 g/dL CAL (32.0-36.0); NEUT# 11.39 thou/uL (2.00-7.15); RED BLOOD COUNT 4.77 mill/uL (4.20-5.60); RED CELL DISTRI WIDTH 14.3 % (11.5-15.5)
[2019-12-12 05:42] VITALS: BP 138/92
[2019-12-12 05:58] LABS: ALBUMIN 3.7 g/dL (3.2-5.0); BILIRUBIN, TOTAL 0.6 mg/dL (0.0-1.4); CREATININE 1.3 mg/dL (0.5-1.0); POTASSIUM 4.2 mmol/l (3.5-5.1); TOTAL PROTEIN 7.8 g/dL (6.3-8.2)
[2019-12-12 08:05] VITALS: BP 160/73
--- NOTE | 2019-12-12 08:05 | NUR ---
ASSESSMENT IS COMPLETED: IV SITE IS FREE FROM REDNESS OR EDEMA/ HR IS REG,PULSES ARE STRONG X4, ABD IS SOFT WITH ACTIVE BS. PT HAS A BRUISE ON HER LEFT LOWER ABD. UNSURE OF HOW IT CAME TO BE THERE. PT IS INQUIRING WHEN SHE CAN GO HOME. FEELING BETTER SINCE BEING OFF IV ABT. BREATH SOUNDS ARE CLEAR BILATERALLY, CONTINUE TO OSBERVE AND MONITOR.
[2019-12-12] MEDS ORDERED: DOXYCYC MONO100 M2 PO (09:02)
[2019-12-12 11:10] VITALS: BP 143/95
--- NOTE | 2019-12-12 12:00 | NUR ---
PT HAS BEEN RELAXING IN BED WITH NO DISTRESS NOTED. IV SITE IS FREE FROM REDNESS OR EDEMA.
--- NOTE | 2019-12-12 14:15 | NUR ---
PT IV SITE DISCONTINUED CATHETER INTACT NO REDNESS OR EDEMA. DISCHARGE INSTRUCTIONS GIVEN AND VERBALIZED UNDERSTANDING.
--- NOTE | 2019-12-12 14:39 | NUR ---
Discharge instructions given. Patient verbalizes understanding of same. Discharged in stable condition via Wheelchair to Home with family. All belongings sent with pt.
== END 2019-12-12 14:24 | disposition home or self-care (01) | DRG 872 ==
LOC: ED 20:23 → MS2 12-06 00:22
PROVIDERS: Internal Medicine; Nurse Practitioner Family; ADMIT Internal Medicine; ATTEND Internal Medicine
DX: A41.9 Sepsis, unspecified organism (principal); Z68.43 Body mass index [BMI] 50.0-59.9, adult; N17.9 Acute kidney failure, unspecified; J03.90 Acute tonsillitis, unspecified; R59.0 Localized enlarged lymph nodes; R79.82 Elevated C-reactive protein (CRP); E66.9 Obesity, unspecified; T36.8X5A Adverse effect of other systemic antibiotics, initial encounter; R79.89 Other specified abnormal findings of blood chemistry; J32.0 Chronic maxillary sinusitis; Z20.828 Contact with and (suspected) exposure to other viral communicable diseases
CPT/HCPCS: J3370; Q3014; Q9967

== ENCOUNTER 2021-08-28 18:23 | Emergency (ER) | payer OTHER ==
[~2021-08-28] VITALS: Ht 162.6 cm; Wt 163.0 kg
[~2021-08-28 18:23] MED LIST changes: +ALBUTEROL SUL0.083 % IN; +DOXYCYC MONO100 M2 PO; +FLOVENT DI250 MCG/BL
[2021-08-28 19:30] LABS: URINE BILIRUBIN - DIPSTICK NEGATIVE (NEGATIVE); URINE BLOOD DIPSTICK NEGATIVE (NEGATIVE); URINE COLOR YELLOW; URINE GLUCOSE - DIPSTICK NEGATIVE (NEGATIVE); URINE KETONE TRACE mg/dL (NEGATIVE); URINE LEUK ESTERASE NEGATIVE (NEGATIVE); URINE NITRITE - DIPSTICK NEGATIVE (Negative); URINE PROTEIN - DIPSTICK NEGATIVE (NEG-TRACE); URINE SPECIFIC GRAVITY 1.025; URINE UROBILINOGEN - DIPSTICK 0.2 E.U./dL (0.2)
[2021-08-28 19:43] LABS: HEMATOCRIT 40.5 % (37.0-47.0); HEMOGLOBIN 12.3 g/dl (12.0-16.0); IMMATURE GRANULOCYTES 0.1 % (0.0-5.0); MEAN CELL VOLUME 81.5 fL CALC (80.0-100.0); MEAN CORPUSCULAR HGB 24.7 pG CALC (26.0-32.0); MEAN CORPUSCULAR HGB CONC 30.4 g/dL CAL (32.0-36.0); NEUT# 10.23 thou/uL (2.00-7.15); RED BLOOD COUNT 4.97 mill/uL (4.20-5.60); RED CELL DISTRI WIDTH 14.6 % (11.5-15.5)
[2021-08-28 19:54] LABS: ALBUMIN 4.1 g/dL (3.2-5.0); ALKALINE PHOSPHATASE 109 u/l (38-126); ANION GAP 13 (6-22 (CALC)); BILIRUBIN, TOTAL 0.5 mg/dL (0.0-1.4); BUN 14 mg/dL (7-17); BUN/CREATININE RATIO 20 (12-20 (CALC)); CARBON DIOXIDE 26 mmol/l (22-30); CHLORIDE 104 mmol/l (95-108); CREATININE 0.7 mg/dL (0.5-1.0); GFR > 60 ML/MIN (>=60 (CALC)); GFR FOR AFR.AMER. > 60 ML/MIN (>=60 (CALC)); POTASSIUM 3.9 mmol/l (3.5-5.1); SGOT/AST 25 u/l (14-36); SODIUM 139 mmol/l (137-146); TOTAL PROTEIN 7.8 g/dL (6.3-8.2)
[2021-08-28] MEDS ORDERED: CHOLESTERO PO (20:05)
[2021-08-28] MEDS ORDERED: SPIRONOLACTONE50 MG PO (20:05)
[2021-08-28] MEDS ORDERED: ALBUTEROL108 MCG/AC (20:06)
[2021-08-28] MEDS ORDERED: FAMCICLOVIR500 MG PO (21:24)
[2021-08-28] MEDS ORDERED: MEDDOSEPAK PO (21:24)
[2021-08-28 21:55] VITALS: BP 126/65
== END 2021-08-28 21:55 | disposition home or self-care (01) ==
LOC: ED 18:23
PROVIDERS: Emergency Medicine
DX: G51.0 Bell's palsy (principal); J45.909 Unspecified asthma, uncomplicated; E66.9 Obesity, unspecified; Z68.44 Body mass index [BMI] 60.0-69.9, adult

== ENCOUNTER 2021-09-13 22:35 | Emergency (ER) | payer OTHER ==
[~2021-09-13] VITALS: Ht 162.6 cm; Wt 159.0 kg
[~2021-09-13 22:35] MED LIST changes: +ALBUTEROL108 MCG/AC; +CHOLESTERO PO; +FAMCICLOVIR500 MG PO; +SPIRONOLACTONE50 MG PO
[2021-09-14 00:10] VITALS: BP 163/83
== END 2021-09-14 02:00 | disposition home or self-care (01) ==
LOC: ED 22:35
DX: R09.81 Nasal congestion (principal); J45.909 Unspecified asthma, uncomplicated; E66.9 Obesity, unspecified; Z68.44 Body mass index [BMI] 60.0-69.9, adult; Z20.822 Contact with and (suspected) exposure to COVID-19